=== PATIENT | male | born 1975 | race Caucasian/White ===

== ENCOUNTER → 2018-11-08 18:19 | Outpatient (CLI) | payer OTHER, SELFPAY | PROVIDERS: PCP Family Medicine; Visit Provider Family Medicine | DX: G47.33 Obstructive sleep apnea (adult) (pediatric) (principal); G47.10 Hypersomnia, unspecified; R06.83 Snoring | CPT/HCPCS: 95806 ==

== ENCOUNTER → 2019-04-11 13:59 | Outpatient (CLI) | payer OTHER, SELFPAY ==
--- NOTE | 2019-04-11 14:04 | XR_ITS ---
PROCEDURE: XR KNEE LT 4V CLINICAL INDICATION: left knee pain COMPARISON: [id number] [id number] VIEWS-RT from 04/29/2014 XR KNEE LT 3V from 03/31/2019 FINDINGS: Severe osteoarthritic changes are present at the lateral compartment with some flattening and dysplastic change the lateral femoral condyle and lateral tibial plateau.. Mild osteoarthritic changes involving the medial compartment and patellofemoral joint. IMPRESSION: Severe osteoarthritis of the lateral compartment as described Dictated by: Kevin Crawford MD 04/11/2019 19:49 Electronically signed by Kevin Crawford MD in [place] 04/11/2019 19:49
== END ==
PROVIDERS: PCP Family Medicine; Visit Provider Orthopaedic Surgery
DX: M25.562 Pain in left knee (principal)
CPT/HCPCS: 73564

== ENCOUNTER → 2020-06-22 15:41 | Outpatient (CLI) | payer OTHER, SELFPAY | PROVIDERS: PCP Nurse Practitioner Family; Visit Provider Nurse Practitioner Family | DX: Z20.822 Contact with and (suspected) exposure to COVID-19 (principal) | CPT/HCPCS: U0003 ==

== ENCOUNTER → 2021-03-04 09:05 | Outpatient (CLI) | payer OTHER, SELFPAY ==
[2021-03-04 10:15] VITALS: BMI 32.8
[2021-03-04 10:17] LABS: Apearance,Urine Clear (Clear); Bilirubin,Urine Negative (Negative); Blood, Urine Negative (Negative); Color,Urine Yellow (Yellow); Glucose,Urine (UA) Negative (Negative); Ketones,Urine Negative (Negative); Protein,Urine Negative (Negative); Specific Gravity, Urine 1.025 (1.005-1.030); UTC Leukocyte Esterase,Urine Negative (Negative); Urobilinogen,Urine 0.2 EU/dl (0.2)
[2021-03-04 10:18] LABS: UTC Nitrate,Urine Negative (Negative)
== END ==
PROVIDERS: PCP Family Medicine; Visit Provider Nurse Practitioner Family
DX: Z02.4 Encounter for examination for driving license (principal)
CPT/HCPCS: 81003

== ENCOUNTER → 2021-03-26 20:32 | Outpatient (CLI) | payer OTHER, SELFPAY ==
[2021-03-26 21:04] LABS: Influenza A, PCR Not Detected (NotDetected); Influenza B, PCR Not Detected (NotDetected)
[2021-03-26 23:51] LABS: Coronavirus 19, PCR Detected (NotDetected)
== END ==
PROVIDERS: PCP Family Medicine; Visit Provider Family Medicine
DX: U07.1 COVID-19 (principal); R53.1 Weakness
CPT/HCPCS: C9803; U0003; U0005

== ENCOUNTER 2022-07-28 10:14 | Day surgery (SDC) | payer OTHER, SELFPAY ==
[2022-07-24 13:37] VITALS: BMI 33.1
[2022-07-28] VITALS (10 sets, daily range): BP systolic 135–195; BP diastolic 91–107; PULSE 71–87; RESP 16–19; TEMP 36.1–36.3; O2SAT 95–98
[2022-07-28 10:44] LABS: Basophils # 0.1 K/mm3 (0-0.2); Basophils % 0.8 % (0.1-2.0); Eosinophils # 0.3 K/mm3 (0.0-0.4); Eosinophils % 3.3 % (0.1-12.0); Hematocrit 48.1 % (42.0-52.0); Hemoglobin 15.7 g/dL (14.1-18.0); Lymphocytes # 2.8 K/mm3 (0.7-4.5); Mean Corpuscular HGB Conc 32.7 g/dL (31.8-35.4); Mean Corpuscular Hemoglobin 31.5 pg (27.0-31.2); Mean Corpuscular Volume 96.3 fl (80-94); Mean Platelet Volume 9.1 fl (7.4-10.4); Monocytes # 0.6 K/mm3 (0.1-1.0); Monocytes % 6.1 % (1.7-9.3); Neutrophils # 5.8 K/mm3 (1.8-7.8); Neutrophils % 60.8 % (37.0-80.0); Platelet Count 265 K/mm3 (142-424); Red Blood Count 4.99 M/mm3 (4.60-6.20); Red Cell Distribution Width 13.5 % (11.5-17.5); White Blood Count 9.6 K/mm3 (4.8-10.8)
[2022-07-28 11:18] LABS: Chloride 105 mmol/L (98-107); Potassium 4.8 mmoL/L (3.5-5.1); Sodium 137 mmol/L (136-145)
[2022-07-28 11:21] LABS: Anion Gap 11.8 mEq/L (5-15); Blood Urea Nitrogen 17 mg/dl (9-20); Calcium 9.1 mg/dl (8.4-10.2); Carbon Dioxide 25 mmol/L (22.0-30.0); Creatinine Clearance Estimated 174 mL/min (50-200); Estimated Glomerular Filt Rate 91 ml/min (>60); GFR (African American) 110 ML/MIN (>60); Glucose 108 mg/dl (74-100)
--- NOTE | 2022-07-28 11:55 | P.PN_ITS ---
[facility] Disclaimer: The information contained in this section may have been updated after the patient was seen, as this information can be updated by other users. Medical History Atrial fibrillation Hx of testicular cancer Surgical History Hx of knee surgery Hx of removal of testicle Hx of umbilical hernia repair Family History Other Family history of cancer Family history of hypertension Social History Smoking Status: Current every day smoker alcohol intake: former substance use type: denies use current occupational status: employed Travel in the last 8 weeks: Inside the [place] household members: significant other and children housing: house lives independently: No marital status: single education level: high school service: No caffeine: Yes special heather needs: No agree to transfusion: No do you feel safe at home: Yes victim of physical abuse: No victim of emotional abuse: No victim of sexual abuse: No would you like helpful sources: No [facility] Anesthesia Checklist Patient Identification Patient Identification: Verbal (Name & ) Structural Data Admitted From: Home Planned Operative Procedure/s: excision neoplasm l back Consent for Planned Operative Procedure(s) Verified: Yes NPO Status Verified Time NPO: 00:00 Additional verifications Anesthesia Reactions: No Hx Blood Transfusions: No Blood Transfusion Reaction: No Airway Assessment C-Spine Mobility Assessed: Yes TMJ Mobility Assessed: Yes Dentition: Good Dentition Neurological Assessment Level of Consciousness: Awake, Alert and Appropriate Anesthesia Plan Anesthesia Risk discussed: Yes Anesthesia Plan: Verified ASA Class: II Anesthesia Type: General
--- NOTE | 2022-07-28 13:01 | EXP.OP.NOTE ---
Date of procedure: 07/28/22 Pre-op Diagnosis:: Sebaceous cyst left upper back Post-op Diagnosis:: Abscessed sebaceous cyst Procedure performed:: Excision and debridement of abscess sebaceous cyst without closure Surgeon:: Prashanth Kang MD CIRCUS ARTIST:: Sean Marks Anesthesia: LMA Estimated blood loss (mL): 25 Clinical Note:: Patient is a 47-year-old male from [facility] referred by Dr. Harry's office for cyst on the back.? Patient states that this area has been present for some time.? He however states that it has increased in size and become tender recently.? He states that his girlfriend had squeezed some material out of it.? He has ongoing tenderness.? Patient is on Eliquis for apparent previous TIA.? 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. Patient was seen in the office on 07/17/2022. He had findings of a mildly inflamed sebaceous cyst with a diameter measuring at least 4 cm. There was felt to be possibly some mild fluctuance. He was started on antibiotics consisting of Bactrim and clindamycin in hopes of planned excision with primary closure in a week or so. He presented for planned procedure. Examination of the area in the preoperative holding area revealed findings of significantly erythematous indurated fluctuant abscess sebaceous cyst draining pus. Plan was made for excision with leaving the area open versus possible partial closure and initiation of dressing changes. Operative findings:: He had a significant amount of purulent caseous material which exuded from the soft tissue site consistent with significant abscessed sebaceous cyst. Surrounding tissues were markedly inflamed which prohibited partial closure. Deep tissues including subcutaneous and even superficial muscle were inflamed and indurated. Operative note:: Patient was taken the operating room. He was given preoperative intravenous antibiotics. In the operating room he was placed in a supine position. General anesthesia was induced via LMA. He was positioned in right lateral position. The area was prepped and draped. There was a skin punctum and there were a couple of areas of devitalized tissue draining pus. Elliptical incision was made after marking the area with a skin marker. There was caseous purulent debris which exuded from the wound. Cultures were sent. Dissection was carried out dissecting free caseous material and what appeared to be cyst wall but identification of structures were difficult. There was a moderate abscess pocket/cavity remaining. Surrounding tissues were indurated including subcutaneous tissue and muscle. Somewhat necrotic and capsule like material was debrided mostly using electrocautery. Wound was thoroughly irrigated. Local anesthetic was infiltrated. Hemostasis was achieved electrocautery. Wound was packed with dry sterile gauze. Clean dry sterile dressing was applied. Condition: stable Disposition: PACU Complications:: None immediately apparent
--- NOTE | 2022-07-28 13:10 | EXP.ANES.I ---
[facility] Anesthesia Record Part I Anesthesia Record I Intake, IV Amount: 600 Estimated blood loss (mL): 10 Urine output (mL): 0 Blood Pressure: 135/94 SaO2: 95 Pulse Rate: 74 Respiratory Rate: 16 Temperature: 97.3 F Patient is:: Drowsy and Stable Stable to PACU at:: 13:20
--- NOTE | 2022-07-28 14:14 | SUR.PHASEII ---
Pt states he did not take his blood pressure meds today, advised pt to take blood pressure meds when he gets home. pt and larisa verbalized understanding.
--- NOTE | 2022-07-29 07:26 | P.PNANES_ITS ---
[facility] Anesthesia Record Part II Anesthesia Record Part II Discharge Time: 13:40 Destination: Surgical Day Care (OP Surgery) PACU nurse assessment reviewed?: Yes Patient Condition:: Good Anesthesia Complications:: None Swallowing reflex intact?: Yes Cyanosis?: No Blood Pressure: 146/97 Pulse Rate: 72 Temperature: 97 F Mental Status: Alert & Oriented Pain level:: 0 Nausea and/or vomitting:: None Intake, IV Amount: 0
[2022-07-29 07:28] VITALS: BP 146/97; PULSE 72; TEMP 36.1
--- NOTE | 2022-07-29 08:19 | P.PN_ITS ---
[facility] Disclaimer: The information contained in this section may have been updated after the patient was seen, as this information can be updated by other users. Medical History Atrial fibrillation Hx of testicular cancer Surgical History Hx of knee surgery Hx of removal of testicle Hx of umbilical hernia repair Family History Other Family history of cancer Family history of hypertension Social History Smoking Status: Current every day smoker alcohol intake: former substance use type: denies use current occupational status: employed Travel in the last 8 weeks: Inside the [place] household members: significant other and children housing: house lives independently: No marital status: single education level: high school service: No caffeine: Yes special heather needs: No agree to transfusion: No do you feel safe at home: Yes victim of physical abuse: No victim of emotional abuse: No victim of sexual abuse: No would you like helpful sources: No [facility] Anesthesia Checklist Patient Identification Patient Identification: Verbal (Name & ) Structural Data Admitted From: Home Planned Operative Procedure/s: colonoscopy Consent for Planned Operative Procedure(s) Verified: Yes Additional verifications Anesthesia Reactions: No Hx Blood Transfusions: No Blood Transfusion Reaction: No Airway Assessment C-Spine Mobility Assessed: Yes TMJ Mobility Assessed: Yes Dentition: Good Dentition Neurological Assessment Level of Consciousness: Awake, Alert and Appropriate Anesthesia Plan Anesthesia Risk discussed: Yes Anesthesia Plan: Verified ASA Class: III Anesthesia Type: MAC
== END 2022-07-28 14:15 | disposition home or self-care (01) ==
PROVIDERS: PCP Family Medicine; Visit Provider Surgery
PROC: (CPT 11404; principal; 2022-07-28 12:15)
DX: L72.0 Epidermal cyst (principal); Z72.0 Tobacco use; Z79.899 Other long term (current) drug therapy
CPT/HCPCS: 11404; 80048; 85025; 87070; 87075; 87205; 96374; J2405